=== PATIENT | male | born 1955 | race Caucasian/White ===

== ENCOUNTER 2023-08-07 18:06 | Emergency (ER) | payer MEDICARE, SELFPAY | END 2023-08-07 19:21 | disposition left against medical advice (07) | LOC: HO.ED 19:18 | PROVIDERS: Emergency Provider Emergency Medicine | DX: M54.50 Low back pain, unspecified (principal); Z87.442 Personal history of urinary calculi; Z53.21 Procedure and treatment not carried out due to patient leaving prior to being seen by health care provider ==